=== PATIENT | male | born 1965 | race Caucasian/White ===

== ENCOUNTER 2020-01-19 16:49 | Emergency (ER) | payer BC ==
[2020-01-19] MEDS ORDERED: Diphtheria,Pertussis(Acell),Tetanus Vaccine 0.5 ML Syringe IM ONE (17:08)
[2020-01-19] MEDS ORDERED: Bacitracin Oint 1 GM U/D Packet TOP ONE (17:08)
--- NOTE | 2020-01-19 17:40 | EDM.PDOC ---
ED HPI GENERAL MEDICAL PROBLEM - General Chief Complaint: Laceration Stated Complaint: LACERATION RIGHT HAND Time Seen by Provider: 01/19/20 17:06 Source of Information: Reports: Patient History Limitations: Reports: No Limitations - History of Present Illness INITIAL COMMENTS - FREE TEXT/NARRATIVE: HISTORY AND PHYSICAL: History of present illness: Patient is a 54-year-old male who presents to the emergency room with complaints of a laceration to the right thumb, second and third digits. He states he was fixing a fan blade when it struck his hand. He has a gaping laceration to the base of the right thumb and superficial lacerations to the second and third digits. Unsure of his last tetanus update. Offers no systemic complaints. Review of systems: As per history of present illness and below otherwise all systems reviewed and negative. Past medical history: As per history of present illness and as reviewed below otherwise noncontributory. Surgical history: As per history of present illness and as reviewed below otherwise noncontributory. Social history: See social history for further information Family history: As per history of present illness and as reviewed below otherwise noncontributory. Physical exam: General: Well-developed and well-nourished 54-year-old male. Alert and oriented. Nontoxic-appearing and in no acute distress. HEENT: Atraumatic, normocephalic, pupils equal and reactive bilaterally, negative for conjunctival pallor or scleral icterus, mucous membranes moist, trachea midline. No drooling or trismus noted. No meningeal signs. No hot potato voice noted. Lungs: Clear to auscultation, breath sounds equal bilaterally. Heart: S1S2, regular rate and rhythm without overt murmur Abdomen: Soft, nondistended, nontender. Skin: 4cm x 1 cm "L" shaped laceration to base of right thumb. Abrasion of 2nd digit with a 4cm skin tear. Abrasion of MIP of 3rd digit. Otherwise remaining skin is intact, warm, dry. No lesions or rashes noted. Hematologic: No petechiae or purpra. Mucosa appropriate color and normal nail bed color and refill. Extremities: Good flexion and extension/strength of all digits on the right hand, appears to have no tendon involvement. He moves all extremities per self without difficulty or deficits, strong radial pulse bilaterally. Cap refill less than 3 seconds. Neurovascular unremarkable. Neuro: Awake, alert, oriented. Cranial nerves II through XII unremarkable. Cerebellum unremarkable. Motor and sensory unremarkable throughout. Exam nonfocal. Notes: 1% lidocaine was used to anesthetize the right thumb. He has good flexion and extension of the thumb. Will obtain an x-ray to rule out fracture. Area was thoroughly cleansed and irrigated with wound wash and chlorhexidine. 4-0 nylon was used, #7 suture was placed. Bacitracin nonstick dressing along with a aluminum splint splint was used. The other abrasion/skin tear was cleansed as well, same procedure. Bacitracin nonstick dressing was applied. X-ray shows no acute bony abnormalities. 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 Will place him on Keflex. We discussed signs and symptoms that would prompt him to return to the emergency room. I did encourage him to set up a follow-up appointment with the hand surgeon, gave him Elizabeth Alvarez's information. Follow-up, medication and supportive care measures were reviewed and discussed. Voices understanding and is agreeable to plan of care. Denies any further questions or concerns at this time. Diagnostics: Right thumb x-ray Therapeutics: Lidocaine, Tdap, bacitracin, nonstick dressing/wound care Prescription: Keflex Impression: Laceration Plan: 1. Keep the area clean and dry. Continue to monitor for signs of infection. Sutures to be removed in 7-10 days. 2. Tylenol and/or ibuprofen as needed for pain management. 3. Please follow-up with your primary care provider in the next 1-2 days. Return to the ED as needed and as discussed. Definitive disposition and diagnosis as appropriate pending reevaluation and review of above. - Related Data Allergies Allergy/AdvReac Type Severity Reaction Status Date / Time No Known Allergies Allergy Verified 01/19/20 17:01 Home Meds: Home Meds Cetirizine [ZyrTEC] 10 mg PO DAILY 03/13/18 [History] cephALEXin [Keflex] 500 mg PO BID 5 Days #10 cap 01/19/20 [Rx] Past Medical History - Past Health History Medical/Surgical History: Denies Medical/Surgical History HEENT History: Reports: None Cardiovascular History: Reports: None Respiratory History: Reports: None Genitourinary History: Reports: None Neurological History: Reports: None Psychiatric History: Reports: None Endocrine/Metabolic History: Reports: None Hematologic History: Reports: None Immunologic History: Reports: None Oncologic (Cancer) History: Reports: None Dermatologic History: Reports: None - Infectious Disease History Infectious Disease History: Reports: None - Past Surgical History Head Surgeries/Procedures: Reports: None GI Surgical History: Reports: Hernia Repair/Other Musculoskeletal Surgical History: Reports: Other (See Below) Other Musculoskeletal Surgeries/Procedures:: Rihgt ANkle Social & Family History - Family History Family Medical History: Noncontributory - Tobacco Use Smoking Status *Q: Current Every Day Smoker Years of Tobacco use: 25 Packs/Tins Daily: 1.5 - Caffeine Use Caffeine Use: Reports: None - Recreational Drug Use Recreational Drug Use: No ED ROS GENERAL - Review of Systems Review Of Systems: Comprehensive ROS is negative, except as noted in HPI. ED EXAM, SKIN/RASH Exam: See Below (See dictation) ED SKIN PROCEDURES - Laceration/Wound Repair Right Thumb Appearance: Subcutaneous, Linear Distal NVT: Neuro & Vascular Intact, No Tendon Injury Anesthetic Type: Local Local Anesthesia - Lidocaine (Xylocaine): 1% Plain Local Anesthetic Volume: 4cc Skin Prep: Chlorhexidine (Hibiciens), Providone-Iodine (Betadine), Saline, Sterile Drape Saline Irrigation (cc's): 420 Exploration/Debridement/Repair: Wound Explored, In a Bloodless Field, Explored to Base, No Foreign Material Found Closed with: Sutures Lac/Wound length In cm: 5 Suture Size: 4-0 # of Sutures: 7 Suture Type: Nylon, Interrupted, Simple Drain Placement: No Sterile Dressing Applied: Provider Tetanus Status Addressed: Yes Complications: No Course - Vital Signs Last Recorded V/S: Last Vital Signs Temp 96.6 F L 01/19/20 16:58 Pulse 70 01/19/20 16:58 Resp 18 01/19/20 16:58 BP 137/83 01/19/20 17:04 Pulse Ox 98 01/19/20 16:58 - Orders/Labs/Meds Orders: Active Orders 24 hr Category Date Time Status Vaccines to be Administered [RC] PER UNIT ROUTINE Care 01/19/20 17:08 Active Meds: Medications Discontinued Medications Generic Name Dose Route Start Last Admin Trade Name Freq PRN Reason Stop Dose Admin Bacitracin 2 dose 01/19/20 17:08 01/19/20 17:27 Bacitracin Oint 1 Gm TOP 01/19/20 17:09 2 dose ONETIME ONE Administration Diphtheria/Tetanus/Acell Pertussis 0.5 ml 01/19/20 17:08 01/19/20 17:27 Adacel IM 01/19/20 17:09 0.5 ml .ONCE ONE Administration Lidocaine HCl 5 ml 01/19/20 17:08 01/19/20 17:27 Xylocaine-Mpf 1% INJECT 01/19/20 17:09 5 ml ONETIME ONE Administration Departure - Departure Time of Disposition: 17:44 Disposition: Home, Self-Care 01 Clinical Impression: Laceration - Discharge Information Prescriptions: cephALEXin [Keflex] 500 mg PO BID 5 Days #10 cap Instructions: Laceration Care, Adult, [id number] Referrals: PCP,None [Primary Care Provider] - Forms: ED Department Discharge Additional Instructions: The following information is given to patients seen in the emergency department who are being discharged to home. This information is to outline your options for follow-up care. We provide all patients seen in our emergency department with a follow-up referral. The need for follow-up, as well as the timing and circumstances, are variable depending upon the specifics of your emergency department visit. If you don't have a primary care physician on staff, we will provide you with a referral. We always advise you to contact your personal physician following an emergency department visit to inform them of the circumstance of the visit and for follow-up with them and/or the need for any referrals to a consulting specialist. The emergency department will also refer you to a specialist when appropriate. This referral assures that you have the opportunity for follow-up care with a specialist. All of these measure are taken in an effort to provide you with optimal care, which includes your follow-up. Under all circumstances we always encourage you to contact your private physician who remains a resource for coordinating your care. When calling for follow-up care, please make the office aware that this follow-up is from your recent emergency room visit. If for any reason you are refused follow-up, please contact the [facility] Department at and asked to speak to the emergency department charge nurse. [facility] [address] [place] [address] [facility] [address] [place] [address] Thank you for choosing the [facility] emergency department in [place] for your medical needs today. It was a pleasure caring for you. Today you were seen in the emergency department for hand injury and laceration repair. 1. Keep the area clean and dry. Continue to monitor for signs of infection. Sutures to be removed in 7-10 days. 2. Tylenol and/or ibuprofen as needed for pain management. 3. Please follow-up with your primary care provider in the next 1-2 days. Return to the ED as needed and as discussed. Sepsis Event Note (ED) - Evaluation Sepsis Screening Result: No Definite Risk - Focused Exam Vital Signs: Vital Signs Temp Pulse Resp BP Pulse Ox 01/19/20 17:04 137/83 01/19/20 16:58 96.6 F L 70 18 65/33 L 98 - My Orders Last 24 Hours: My Active Orders 01/19/20 17:08 Vaccines to be Administered [RC] PER UNIT ROUTINE - Assessment/Plan Last 24 Hours: My Active Orders 01/19/20 17:08 Vaccines to be Administered [RC] PER UNIT ROUTINE
--- NOTE | 2020-01-19 18:07 | CR ---
INDICATION: Trauma from rotating fan blade. Pain. COMPARISON: None available. TECHNIQUE: The right thumb is examined with PA, lateral, and oblique views. FINDINGS: There is no sign of fracture, dislocation, or joint effusion. There is mild soft tissue irregularity dorsal to the 1st MCP joint consistent with a laceration. There is no sign of any radiopaque foreign body. The elsewhere soft tissues are normal in appearance without sign of radio-opaque foreign body or additional aspiration. No degenerative disease is seen. IMPRESSION: No sign of acute osseous injury. Laceration dorsal to the 1st MCP joint. Dictated by Josr Nash MD @ Jan 19 2020 6:04PM Signed by Dr. Josr Nash @ Jan 19 2020 6:06PM
== END 2020-01-19 18:19 | disposition home or self-care (01) ==
LOC: MW.ED 16:49
DX: S61.011A Laceration without foreign body of right thumb without damage to nail, initial encounter (principal); S61.210A Laceration without foreign body of right index finger without damage to nail, initial encounter; S60.412A Abrasion of right middle finger, initial encounter; Z23 Encounter for immunization; F17.210 Nicotine dependence, cigarettes, uncomplicated; W26.8XXA Contact with other sharp object(s), not elsewhere classified, initial encounter
CPT/HCPCS: 12002; 73140; 90471; 90715; 99283; J2001; 99282